=== PATIENT | female | born 1965 | race Caucasian/White ===

== ENCOUNTER 2018-03-06 08:42 | Inpatient (IN) ==
--- NOTE | 2018-03-06 10:02 | History & Physical Report ---
Date of Encounter: 03/06/18 Time of Encounter: 09:55 24 Hour HP Update - Instructions Instructions: If the History and Physical is less than 30 days old and was completed prior to A.M. admission and or procedure and has NOT been updated on calendar day of procedure please complete this update prior to performing procedure. - Update Patient reports changes in Medical Condition: No Changes in examination, assessment, or condition: No Changes in Medication: No Preop tests/diagnostics Reviewed: Yes Review of Patient reveals the following changes:: No changes since recent office visit. Denies symptoms with atrial fibrillation. C/o intermittent SOB with activity but unsure if it occurs with PAF. - Pre-Operative Checklist Beta Pina Taken Yesterday (Day Prior to Surgery): Yes Is VTE Prophylaxis Indicated?: Yes - Attending Attestation Ms. Oneill is a 52-year-old female who presents for elective rhythmol therapy initiation. She has a past medical history of HTN, hypothyroidism, thyroid nodules, tubular adenoma of the colon, anxiety, and depression. She denies changes since recent office visit. Denies chest pain, palpitations. C/o occasional SOB with activity. C/o dizziness with standing at times. Recent holter monitor showed several episodes of PAF up to two hours and 23 min long. She was seen by Dr. Edison De La Torre and recommended to start rhythmol 150 mg every eight hours. She denies questions. She is a [facility] Vasc 1 on asa for CVA prevention. Please see OV by Dr. Edison De La Torre on 02/24/18 for full H&P. Admission assessment and POC reviewed with Dr. Edison De La Torre.
[2018-03-06 10:42] LABS: BUN/Creatinine Ratio 19 (6-26); Blood Urea Nitrogen 15 mg/dL (6-20); Calcium 9.1 mg/dL (8.6-10.3); Carbon Dioxide 29 mEq/L (23-29); Chloride 106 mEq/L (98-107); Glucose 86 mg/dL (70-105); Osmolality,Calculated 284 (280-300); Sodium 137 mEq/L (136-145); eGFR For African Americans > 60 (> 60); eGFR For Non-African Americans > 60 (> 60)
[2018-03-06] MEDS: Aspirin 81 MG TAB.CHEW PO SCH (11:38)
[2018-03-06] MEDS: *HR* Enoxaparin 40 MG/0.4 ML SYRINGE SQ SCH (17:49)
[2018-03-06] MEDS ORDERED: Metoprolol XL (24 HR) Succ 25 MG TAB.ER.24H PO SCH (18:00)
[2018-03-07] MEDS: Aspirin 81 MG TAB.CHEW PO SCH (07:43)
[2018-03-07] MEDS ORDERED: [UNRECOGNIZED DRUG - OTHER] PO SCH (09:00)
[2018-03-07] MEDS ORDERED: Fluticasone Propionate Nasal 50 MCG/SPRAY BOTTLE NS SCH (09:00)
[2018-03-07] MEDS ORDERED: GASSERI PO SCH (09:00)
[2018-03-07] MEDS ORDERED: hydroCHLOROthiazide 25 MG TABLET PO SCH (09:00)
[2018-03-07] MEDS ORDERED: B BIFIDUM PO SCH (09:00)
[2018-03-07] MEDS ORDERED: B LONGUM PO SCH (09:00)
--- NOTE | 2018-03-07 14:39 | Discharge Summary ---
Orders not resulted at time of discharge: Pending orders 03/08/18 06:00 EKG [ECG 12 lead ECG] [ECG] AM 0600 03/09/18 06:00 EKG [ECG 12 lead ECG] [ECG] AM 0600 Date of Encounter: 03/07/18 Time of Encounter: 14:36 - Discharge Diagnosis (1) PAF (paroxysmal atrial fibrillation) Priority: Primary Status: Acute - Hospital Course Hospital course: Ms. Oniell is a 52 year old female with past medical history of PAF, HTN, and hypothyroidism who presented for elective rythmol therapy initiation. EKG at baseline showed normal sinus bradycardia, HR 58 bpm, QRS 99, QT/QTc 420/ 441. EKG after second dose showed sinus bradycardia, HR 58 bpm, QT/QTc 423/419, QRS 109. She remained in NSR to sinus bradycardia during her stay. Avg HR was 62 bpm. No significant bradycardia seen. She denies side effects. Her 5th dose of rythmol is due this evening at 7:30 pm. If there are no concerning findings on EKG after her fifth dose she will be discharged home. Out-pt f/u will be scheduled in 3-4 weeks with [facility]. - Time Spent with Patient Total time spent providing and/or coordinating discharge services: Greater than 30 minutes - Discharge Medications Prescriptions: Propafenone HCl [Rythmol Sr] 225 mg PO Q12H #60 cap.er.12h Home Medications: Aspirin Enteric Coated [Aspirin EC] 81 mg PO DAILY 11/19/15 [History] Ergocalciferol (VITAMIN D2) [Vitamin D2 (50,000 UNIT)] 50,000 unit PO QWEEK [History] Fluticasone Propionate Nasal [Flonase] 50 mcg NS DAILY 11/19/15 [History] Levothyroxine Sodium [Levoxyl] 112 mcg PO 0630 12/06/17 [History] l Gasseri/B Bifidum/B Longum [Glipho Capsule] 1 tab PO DAILY [History] Lisinopril 2.5 mg PO DAILY 03/06/18 [History] Metoprolol Succinate [Toprol Xl] 12.5 mg PO DAILY 03/06/18 [History] hydroCHLOROthiazide [Hydrochlorothiazide] 12.5 mg PO DAILY 03/06/18 [History] Propafenone HCl [Rythmol Sr] 225 mg PO Q12H #60 cap.er.12h 03/07/18 [Rx] Allergies/Adverse Reactions: 3 Allergy/AdvReac Type Severity Reaction Status Date / Time No Known Allergies Allergy Verified 03/06/18 11:15 Date of admission: 03/06/18 08:42 Primary care physician: Andrzej Ochoa MD Consults: none Discharging clinician: Manish Snyder Anticipated date of discharge: 03/07/18 Physical Examination Vital Signs, Last 4 Hours Temp Pulse Resp BP Pulse Ox 03/07/18 11:24 97.4 F L 64 16 106/71 97 General: Conversant, No Apparent Distress HEENT: Atraumatic, Normocephaly, Mucus Membranes Moist Neck: No JVD, Normal carotid pulses Cardiac: Reg Rate and Rhythm, Normal S1 and S2, No Murmur Lungs: Normal Breath Sounds, No Wheeze, Rales, Rhonchi Neuro: Alert and responsive, No focal deficits noted Abdomen: Soft, Non-Tender Skin: No rashes noted on visualized skin Musculoskeletal: No Chest Wall Tenderness Extremities: No Clubbing, No Cyanosis, No Edema, Normal Pulses - Patient Status Disposition: Home, Self-Care Condition: Good Overall status at discharge: patient is back to baseline - Discharge Instructions Instructions: Propafenone (By mouth), Atrial Fibrillation (DC) Follow Up With: Andrzej Ochoa MD [Primary Care Provider] - 03/13/18 11:00 am (Please follow up as schedule...) - Diet and Activity Activity: increase activity as tolerated Diet: low fat, low cholesterol
--- NOTE | 2018-03-07 16:09 | Electrocardiograph Report ---
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
--- NOTE | 2018-03-07 16:21 | Electrocardiograph Report ---
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
[2018-03-07] MEDS: *HR* Enoxaparin 40 MG/0.4 ML SYRINGE SQ SCH (17:31)
[2018-03-07] MEDS ORDERED: Metoprolol XL (24 HR) Succ 25 MG TAB.ER.24H PO SCH (18:00)
[2018-03-07 19:40] VITALS: BP 139/79
--- NOTE | 2018-03-08 12:30 | Electrocardiograph Report ---
[place] [address] Test Date: 2018-03-07 Pat Name: Teresa Oneill Department: 112 Room: 2A Gender: F Coordinator Cardiopulmonary Services: : 1965 Requested By: Manish Snyder Order Number: [id number] Reading MD: Rojelio Liao Measurements Intervals [place] Rate: 69 P: 18 NE: 202 QRS: 27 QRSD: 98 T: 41 QT: 389 QTc: 407 Interpretive Statements SINUS RHYTHM NONSPECIFIC T-WAVE ABNORMALITY Electronically Signed On 03-08-2018 12:28:33 EDT by Rojelio Liao
== END 2018-03-07 21:41 | disposition home or self-care (01) | DRG 310 ==
LOC: 2ANU 08:42
PROVIDERS: ADMIT Internal Medicine Clinical Cardiac Electrophysiology; ATTEND Internal Medicine Clinical Cardiac Electrophysiology